=== PATIENT | female | born 1935 | race Caucasian/White ===

== ENCOUNTER → 2016-12-24 08:24 | Outpatient (CLI) | payer MEDICARE, OTHER ==
[2015-03-28 15:05] VITALS: BMI 23.2
[~2016-12-24 08:24] MED LIST: ASPIRIN EC81 MG PO; CALCIUM 600+D T1 TA1 PO; EVISTA60 MG PO; GLUCOSAMINE & C1 CAP PO; MELOXICAM PO; MULTI-DAY VITAM1 TAB PO; PREMARIN45 GM VG; PROBIOTIC PO; STATIN; VESICARE5 MG PO; VITAMIN D3 PO
== END | disposition home or self-care (01) ==
LOC: D.RAD 08:24
DX: Z12.11 Encounter for screening for malignant neoplasm of colon (principal)

== ENCOUNTER → 2017-02-09 19:48 | Outpatient (CLI) | payer MEDICARE, OTHER ==
[2015-03-28 15:05] VITALS: BMI 23.2
== END | disposition home or self-care (01) ==
LOC: D.LABREF 19:48
DX: N39.0 Urinary tract infection, site not specified (principal)

== ENCOUNTER 2017-03-18 06:08 | Day surgery (SDC) | payer MEDICARE, OTHER ==
[2017-03-17 09:08] LABS: BASOPHILS 0.5 % (0-2); EOSINOPHILS 3.7 % (0-7); HEMATOCRIT 40.3 % (36.0-48.0); HEMOGLOBIN 13.5 g/dL (12-16); IMMATURE GRANULOCYTES 0.2 % (0-5); LYMPHOCYTES 28.8 % (15-50); MCH 33.4 pg (26.0-34.0); MCHC 33.5 g/dL (31.0-37.0); MCV 99.8 fL (80.0-100.0); MEAN PLATELET VOLUME 10.6 fL (7.4-10.4); MONOCYTES 8.8 % (2-11); PLATELET COUNT 144 10x3/uL (130-400); RBC 4.04 10x6/uL (4.00-5.40); WBC 5.5 10x3/uL (4.8-10.8)
[2017-03-17 09:17] LABS: ANION GAP 9.7 mmol/L (8-16); CALCIUM 8.8 mg/dL (8.5-10.1); CARBON DIOXIDE 30.5 mmol/L (21.0-32.0); CREATININE - SERUM 1.1 mg/dL (0.6-1.3); POTASSIUM - SERUM 4.2 mmol/L (3.5-5.1)
[~2017-03-18] VITALS: Ht 152.4 cm; Wt 50.3 kg
[~2017-03-18 06:08] MED LIST changes: +LIPITOR40 MG PO; -MELOXICAM PO; +MOBIC7.5 MG PO; -PROBIOTIC PO; +PROBIOTIC1 EAC1 PO; +RECLAST 55 MG/100 M IV; -VITAMIN D3 PO; +VITAMIN D31000 UNIT PO
[2017-03-18 11:09] VITALS: BP 103/73; Ht 152.4 cm; Wt 50.3 kg
--- NOTE | 2017-03-18 14:20 | NUR ---
1400-RECD TO ROOM FROM PACU. ALERT. RESP WITH EASE. DENIES PAIN/NAUSEA. FULL LIQUIDS SERVED.
--- NOTE | 2017-03-18 16:19 | NUR ---
1510-DISCHARGED HOME VIA WHEELCHAIR.
--- NOTE | 2017-03-19 08:48 | OP ---
PATIENT NAME: JESSICA ROJAS MEDICAL RECORD: [id number] :35 LOCATION:D.OPS ADMISSION DATE: SURGEON: SANDRA DIAL MD DATE OF OPERATION: 03/18/2017 SURGEON: Sandra Dial MD. ANESTHESIA: LMA General by Teodora Preston CRNA. PREOPERATIVE DIAGNOSES: Microhematuria and urge urinary incontinence. PROCEDURES: Cystoscopy, intravesical Botox injection 100 units. FINDINGS: Single ureteral orifices bilaterally. Diffuse bladder inflammation suggestive of interstitial cystitis. No bladder tumors. ESTIMATED BLOOD LOSS: Zero. CLINICAL HISTORY: This is an 81-year-old female who has had microhematuria as well as urge urinary incontinence for some time. She had tried VESIcare, which did work, but she suffered severe dry mouth from it. I gave her Myrbetriq, which also worked very well for her, but she could not afford the medication. As a result, we are now going to try intravesical Botox. She also has microhematuria on urinalysis. She does need to have cystoscopy and so we are going to combine both procedures in 1. She is allergic to no medications. We gave her Ancef 1 gram IV it consultant to the OR. DESCRIPTION OF PROCEDURE: The patient was given induction of general anesthesia. She was placed in the dorsal lithotomy position, prepped and draped. A 21-Georgian cystoscope with 30-degree lens was used for visualization. She has a bit of a cystocele, which makes the ureteral orifices difficult to see. However, there were single ureteral orifices bilaterally. The bladder has diffuse inflammation with follicles, which are lymph follicles visible. This is suggestive of interstitial cystitis. No bladder tumors were seen. The Botox was rehydrated in 3 cc of preservative-free normal saline and then diluted to a total of 10 mL volume. Each mL thus contains 10 units of Botox. Using a 10 cc syringe, we used a Matthew-Rodri needle to inject the bladder at 10 different sites with 1 mL of the Botox solution. Once this was done, the bladder was emptied through the scope and the patient was awakened and brought to the recovery room. I will see her in followup in 1-2 weeks' time. If she has any issues with suprapubic or bladder pain then we can also initiate treatment with intravesical Rimso. TRANSINT:[id number] Voice Confirmation ID: [id number] DOCUMENT ID: [id number] SANDRA DIAL MD at 0848 CC: [id number] DICTATION DATE: 03/18/17 1344 RADIOLOGY SCHEDULER: 03/18/17 1739 [facility] 03/18/17 [place] [phone]
== END 2017-03-18 15:10 | disposition home or self-care (01) ==
LOC: D.OPS 06:08 → D.PAN 10:50 → D.OPS 10:50 → D.PAN 10:55 → D.OPS 11:15
PROVIDERS: Anesthesiology
DX: R31.29 Other microscopic hematuria (principal); R32 Unspecified urinary incontinence; Z01.812 Encounter for preprocedural laboratory examination

== ENCOUNTER → 2017-04-27 12:01 | Outpatient (CLI) | payer MEDICARE, OTHER ==
[2017-03-18 11:09] VITALS: BMI 21.7
== END | disposition home or self-care (01) ==
LOC: D.MAMMO 08:15
DX: Z12.31 Encounter for screening mammogram for malignant neoplasm of breast (principal)

== ENCOUNTER 2017-11-03 06:05 | Day surgery (SDC) | payer MEDICARE, OTHER ==
[~2017-11-03] VITALS: Ht 152.4 cm; Wt 49.9 kg
--- NOTE | ~2017-11-03 | OP ---
PATIENT NAME: JESSICA ROJAS MEDICAL RECORD: [id number] :35 LOCATION:D.OPS ADMISSION DATE: SURGEON: KUMAR DIAL MD DATE OF OPERATION: 11/03/2017 SURGEON: Kumar Dial MD ANESTHESIA: MAC by Nilay Caal CRNA. PREOPERATIVE DIAGNOSIS: Urge urinary incontinence. 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 PROCEDURES: Cystoscopy, intravesical Botox injection 100 units and bladder biopsy from the dome of the bladder. FINDINGS: Bladder inflammation. 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 SPECIMENS: Bladder biopsy. ESTIMATED BLOOD LOSS: None. CLINICAL HISTORY: This is an 82-year-old female with urge urinary incontinence, which has not responded to oral medications. Back in March of 2017, we injected intravesical Botox into her bladder and she had excellent relief of her symptoms. The Botox has started to wear off and now she has recurrence of urge urinary incontinence. She now wishes to have a repeat treatment of Botox given to her. She is not allergic to any medications. She was given Ancef when called to the OR. DESCRIPTION OF PROCEDURE: The patient was given IV sedation. She was then placed into the dorsal lithotomy position and prepped and draped. A 21-German cystoscope with 30-degree lens was used for visualization. She has single ureteral orifices on each side. 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 There are diffuse little bumps on the bladder wall, which are suggestive of cystitis cystica and glandularis. We injected at 10 different locations 1 cc of Botox solution. Each cc contained 10 units of Botox for a total of 100 units of Botox. At the end of the injections, I then switched over to the rigid biopsy forceps and took a sample of the presumed cystitis glandularis in the dome of the bladder. We attempted to use the Bugbee electrode for coagulation of the biopsy sites but we had issues with electrical conductivity even though we were using sterile water. As the site was not bleeding, I decided not to continue trying to make the machine work. The bladder was emptied and then, the patient was brought to the preoperative holding area. I will see her in followup in 2 weeks' time to review her pathology as well as to check on her voiding symptoms. TRANSINT:[id number] Voice Confirmation ID: [id number] DOCUMENT ID: [id number] OPERATIVE REPORT [id number] JESSICA ROJAS, KUMAR Trevizo MD at 1050 CC: [id number] DICTATION DATE: 11/03/17 0958 HOTEL OFFICE MANAGER: 11/03/17 1044 [facility] 11/03/17 [place] [phone]
[2017-11-03 07:43] LABS: BASOPHILS 0.4 % (0-2); EOSINOPHILS 4.9 % (0-7); HEMATOCRIT 39.9 % (36.0-48.0); HEMOGLOBIN 13.3 g/dL (12-16); MCH 33.8 pg (26.0-34.0); MCHC 33.3 g/dL (31.0-37.0); MCV 101.3 fL (80.0-100.0); NEUTROPHILS 56.7 % (40-80); PLATELET COUNT 138 10x3/uL (130-400); RBC 3.94 10x6/uL (4.00-5.40); RDW 12.5 % (11.5-14.5); WBC 5.1 10x3/uL (4.8-10.8)
[2017-11-03 08:10] LABS: ANION GAP 11.7 mmol/L (8-16); CALCIUM 8.6 mg/dL (8.5-10.1); CARBON DIOXIDE 26.4 mmol/L (21.0-32.0); POTASSIUM - SERUM 4.1 mmol/L (3.5-5.1)
[2017-11-03 08:22] VITALS: BP 117/48; Ht 152.4 cm; Wt 49.9 kg
== END 2017-11-03 10:34 | disposition home or self-care (01) ==
LOC: D.OPS 06:05 → D.PAN 09:30 → D.OPS 09:30 → D.PAN 11-04 09:00 → D.OPS 11-04 09:00
PROVIDERS: Anesthesiology
DX: N39.41 Urge incontinence (principal); M19.049 Primary osteoarthritis, unspecified hand; Z01.812 Encounter for preprocedural laboratory examination

== ENCOUNTER → 2018-05-10 19:11 | Outpatient (CLI) | payer MEDICARE, OTHER ==
[2017-11-03 08:22] VITALS: BMI 21.5
== END | disposition home or self-care (01) ==
LOC: D.MAMMO 13:30
DX: Z12.31 Encounter for screening mammogram for malignant neoplasm of breast (principal)

== ENCOUNTER 2018-07-21 07:00 | Day surgery (SDC) | payer MEDICARE, OTHER | END 2018-07-21 14:20 | disposition home or self-care (01) | LOC: D.OPS 07:00 | DX: N39.41 Urge incontinence (principal) ==

== ENCOUNTER → 2018-08-17 18:03 | Outpatient (CLI) | payer MEDICARE, OTHER ==
[2018-07-21 08:18] VITALS: BMI 22.3
== END | disposition home or self-care (01) ==
LOC: D.LABREF 18:03
DX: N39.0 Urinary tract infection, site not specified (principal)

== ENCOUNTER 2019-06-20 08:00 | Outpatient (CLI) | payer MEDICARE, OTHER ==
[2018-07-21 08:18] VITALS: BMI 22.3
== END 2019-06-20 23:59 | disposition home or self-care (01) ==
LOC: D.MAMMO 08:00
PROVIDERS: ATTEND Family Medicine
DX: Z12.31 Encounter for screening mammogram for malignant neoplasm of breast (principal)